=== PATIENT | male | born 1975 | race Caucasian/White ===

== ENCOUNTER 2016-06-21 16:12 | Emergency (ER) | payer MEDICAID ==
[2016-06-21] MEDS ORDERED: Oxycodone/Acetaminophen 5/325 mg Tab PO STA (16:52)
[2016-06-21] MEDS ORDERED: Oxycodone/Acetaminophen 5/325 mg Tab ONE (16:56)
--- NOTE | 2016-06-21 17:08 | C.PDOC ---
History Of Present Illness 40 year old male presents to the emergency room for the evaluation of right hip pain that has gradually developed over the past 2 days. Patient reports that the pain is localized and worse with movement of the right hip or right leg. Patient denies any known injury/trauma, abd. pain, N/V/D, back pain, UTI symptoms, saddle anesthesia, incontinence, denies weakness/sensory or vascular deficits to B/L LEs, or any other complaints. Ambulate to ED for evaluation, not in any apparent distress. Time Seen by Provider: 06/21/16 16:31 Chief Complaint (Nursing): Lower Extremity Problem/Injury History Per: Patient History/Exam Limitations: no limitations Onset/Duration Of Symptoms: Days (2) Current Symptoms Are (Timing): Still Present Severity: Moderate Recent travel outside of the [place]: No Past Medical History Reviewed: Historical Data, Nursing Documentation, Vital Signs Vital Signs: Last Vital Signs Temp 98.7 F 06/21/16 17:52 Pulse 79 06/21/16 17:52 Resp 18 06/21/16 17:52 BP 162/89 H 06/21/16 17:52 Pulse Ox 99 06/21/16 17:52 - Medical History PMH: HTN Denies: Chronic Kidney Disease - [facility] Procedures CLOSURE SKIN & SUBCUTANEOUS NEC (08/17/14) TETANUS TOXOID ADMINIST (08/17/14) Family History: States: Unknown Family Hx - Social History Hx Tobacco Use: No Hx Alcohol Use: Yes Hx Substance Use: No - Immunization History Hx Tetanus Toxoid Vaccination: No Hx Influenza Vaccination: No Hx Pneumococcal Vaccination: No Review Of Systems Except As Marked, All Systems Reviewed And Found Negative. Constitutional: Negative for: Fever, Chills Gastrointestinal: Negative for: Nausea, Vomiting, Diarrhea Musculoskeletal: Positive for: Other (Right hip pain). Negative for: Back Pain Physical Exam - Physical Exam Appears: Well, Non-toxic Skin: Normal Color, Warm, Dry, No Rash Eye(s): bilateral: PERRL Neck: No Midline Cervical Tenderness, No Paracervical Tenderness, Supple Gastrointestinal/Abdominal: Soft, No Tenderness, No Distention, No Guarding, No Rebound, No Hernia Back: No CVA Tenderness, No Vertebral Tenderness, No Paraspinal Tenderness Extremity: Normal ROM, Tenderness (Reproducible right hip tenderness on the extremity, extending down to anterior aspect of the right leg. ), No Pedal Edema , No Calf Tenderness, No Deformity, No Swelling Neurological/Psych: Oriented x3, Normal Speech, Normal Cognition, Normal Motor, Normal Sensation, Normal Reflexes Gait: Steady ED Course And Treatment O2 Sat by Pulse Oximetry: 98 Pulse Ox Interpretation: Normal - Other Rad Pelvis with Right hip X-Ray: Interpreted by Me, Viewed By Me Interpretation: no acute fx or dislocation Progress Note: On re-eval, pt is aferile, hemodynamicaly stable. Non-toxic. Ambulatory in ED with stable gait. ABd: benign. Back: (-) CVA tenderness. neurologicaly intact. xray review and appears normal study. HTN noted on triage, pt admits " did not take my BP medictaion today". Pt advised. ref to f /u with PMD in 2-3 days for re-eval. return if any new changes. Disposition Counseled Patient/Family Regarding: Studies Performed, Diagnosis, Need For Followup, Rx Given - Disposition Referrals: Johnathan Hernández MD [Medical Doctor] - Disposition: HOME/ ROUTINE Disposition Time: 17:10 Condition: STABLE Additional Instructions: LIght duty to lower back Avoid bending, heavy lifting, etc. Take pain medication as need Follow up with PMD in 2-3 days for re-evaluation. Return to ED if any worsening or new changes. Prescriptions: Methocarbamol [Robaxin] 500 mg PO TID #14 tab traMADol [Ultram] 50 mg PO TID #7 tab Instructions: Lumbar Radiculopathy (ED), Hypertension (ED) Forms: Work Excuse Print Language: TURKISH - Clinical Impression Clinical Impression: Lumbar radiculopathy, Hypertension - Scribe Statement The provider has reviewed the documentation as recorded by the Scribbill Fuchs All medical record entries made by the Scribe were at my direction and personally dictated by me. I have reviewed the chart and agree that the record accurately reflects my personal performance of the history, physical exam, medical decision making, and the department course for this patient. I have also personally directed, reviewed, and agree with the discharge instructions and disposition.
[2016-06-21 17:53] VITALS: BP 162/89; PULSE 79; RESP 18; TEMP 98.7
[2016-06-21 18:12] VITALS: O2SAT 98
--- NOTE | 2016-06-21 18:17 | RAD ---
PROCEDURE: Right Hip Radiographs. Joint spaces appear HISTORY: pain COMPARISON: None. FINDINGS: BONES: No evidence of acute displaced fracture nor dislocation. Joint spaces appear preserved. SOFT TISSUES: Normal. OTHER FINDINGS: None. IMPRESSION: No evidence of acute displaced fracture nor dislocation.
== END 2016-06-21 17:40 | disposition home or self-care (01) ==
LOC: C.ER 16:12
DX: M54.16 Radiculopathy, lumbar region (principal); I10 Essential (primary) hypertension